=== PATIENT | male | born 1975 | race Caucasian/White ===

== ENCOUNTER 2021-06-17 10:18 | Inpatient (IN) | payer OTHER ==
[~2021-06-17] VITALS: Ht 180.3 cm; Wt 136.0 kg
[2021-06-17] MEDS ORDERED: normal saline 1000ML IV soln IV ONE (16:30)
[2021-06-17] MEDS ORDERED: piperacillin/tazo 3.375gm/50ml 50 ML IV ONE (16:30)
[2021-06-17] MEDS ORDERED: vancomycin/NS 1 GM ADD-VANTAGE 250 ML IV ONE (16:30)
[2021-06-17 17:03] LABS: BASOPHILS # (AUTO) 0.1 X10'3 (0-0.2); BASOPHILS % (AUTO) 0.9 % (0-1); EOSINOPHILS % (AUTO) 0.3 % (0-6); HEMOGLOBIN 13.5 g/dl (14.0-17.9); LYMPHOCYTES # (AUTO) 2.8 X10'3 (1.1-4.8); LYMPHOCYTES % (AUTO) 17.7 % (21-51); MEAN CORPUSCULAR HEMOGLOBIN 30.7 PG (27.0-31.0); MEAN CORPUSCULAR HGB CONC 34.5 g/dL (33.0-36.5); MEAN CORPUSCULAR VOLUME 88.9 FL (78-98); MEAN PLATELET VOLUME 7.7 FL (7.4-10.4); MONOCYTES # (AUTO) 0.8 X10'3 (0-0.9); MONOCYTES % (AUTO) 4.9 % (2-12); NEUTROPHILS # (AUTO) 12.2 X10'3 (1.8-7.7); NEUTROPHILS % (AUTO) 76.2 % (42-75); PLATELET COUNT 334 X10'3 (140-440); RED BLOOD COUNT 4.39 X10'6 (4.70-6.10); RED CELL DISTRIBUTION WIDTH 13.2 % (11.5-14.5)
[2021-06-17 17:35] LABS: ALANINE AMINOTRANSFERASE 54 U/L (12-78); ALKALINE PHOSPHATASE 95 IU/L (46-116); ANION GAP 8 (8-16); ASPARTATE AMINO TRANSFERASE 32 U/L (10-37); BILIRUBIN,TOTAL 0.4 MG/DL (0.1-1.0); BLOOD UREA NITROGEN 6 MG/DL (7-18); BUN/CREATININE RATIO 8.8 (5.4-32.0); CALCIUM 8.8 MG/DL (8.5-10.1); CHLORIDE 101 MMOL/L (99-107); CREATININE 0.68 MG/DL (0.60-1.10); GLUCOSE 101 MG/DL (70-104); SODIUM 139 MMOL/L (135-145); TOTAL CARBON DIOXIDE 29.8 MMOL/L (24-32); eGFR > 90 ML/MIN
[2021-06-17] MEDS ORDERED: HYDROcodone/acetaminophen 10/325mg tab PO ONE (19:30)
[2021-06-17] MEDS ORDERED: potassium Cl 20 mEq SR tablet PO PRN ×2 (19:35)
[2021-06-17] MEDS ORDERED: potassium CL 10mEq/100ml bag 100 ML IV PRN (19:35)
[2021-06-17] MEDS ORDERED: mag hydrox/Alum hydrox/simeth 30ml oral suspension PO PRN (19:35)
[2021-06-17] MEDS ORDERED: magnesium Cl slow-release 64mg tablet PO PRN (19:35)
[2021-06-17] MEDS ORDERED: HYDROcodone/acetaminophen 5mg/325mg tablet PO PRN (19:35)
[2021-06-17] MEDS ORDERED: magnesium 2GM in 50ml NS 50 ML IV PRN (19:35)
[2021-06-17] MEDS ORDERED: acetaminophen 325mg tablet PO PRN (19:35)
[2021-06-17] MEDS ORDERED: morphine 2 MG/ML inj. syringe IV PRN (19:35)
[2021-06-17] MEDS ORDERED: magnesium 4gm in 100ml NS 100 ML IV PRN (19:35)
[2021-06-17] MEDS ORDERED: magnesium hydroxide 30ml (MOM) UD suspension PO PRN (19:35)
[2021-06-17] MEDS: normal saline 1000ml 1,000 ML IV SCH (19:55)
[2021-06-17] MEDS ORDERED: QUET150T2 PO (20:50)
[2021-06-17] MEDS ORDERED: TRAZ-251 PO (20:50)
[2021-06-17] MEDS ORDERED: ATOR10TA87 PO (20:50)
[2021-06-17] MEDS ORDERED: PANT-47 PO (20:50)
[2021-06-17] MEDS ORDERED: METH-797 PO (20:50)
[2021-06-17] MEDS: morphine 2 MG/ML inj. syringe IV PRN (22:31)
[2021-06-17] MEDS: K and/or MAG REPLACEMENT MC SCH (23:15)
[2021-06-17] MEDS: heparin, porcine 5000 units/ml vial SQ SCH (23:16)
[2021-06-18] MEDS ORDERED: traZODone 50mg tablet PO ONE (00:25)
[2021-06-18] MEDS ORDERED: quetiapine 100mg tablet PO ONE (00:30)
[2021-06-18] MEDS ORDERED: QUEtiapine 25mg tablet PO ONE (00:30)
[2021-06-18] MEDS: doxycycline inj 100 MG in normal saline 100ml IV soln 100 ML IV SCH ×2 (00:38→09:13)
[2021-06-18] MEDS: ondansetron/PF 4mg/2ml inj IV PRN ×3 (00:38→14:34)
[2021-06-18] MEDS: HYDROcodone/acetaminophen 10/325mg tab PO PRN ×4 (03:34→20:37)
[2021-06-18] MEDS: morphine 2 MG/ML inj. syringe IV PRN ×3 (05:34→19:35)
[2021-06-18] MEDS: normal saline 1000ml 1,000 ML IV SCH ×2 (05:34→15:35)
[2021-06-18 07:55] LABS: BASOPHILS % (AUTO) 0.3 % (0-1); EOSINOPHILS # (AUTO) 0.1 X10'3 (0-0.9); EOSINOPHILS % (AUTO) 1.3 % (0-6); HEMATOCRIT 36.5 % (42.0-52.0); HEMOGLOBIN 12.5 g/dl (14.0-17.9); LYMPHOCYTES # (AUTO) 2.3 X10'3 (1.1-4.8); LYMPHOCYTES % (AUTO) 22.3 % (21-51); MEAN CORPUSCULAR HGB CONC 34.4 g/dL (33.0-36.5); MEAN CORPUSCULAR VOLUME 90.2 FL (78-98); MONOCYTES # (AUTO) 0.7 X10'3 (0-0.9); MONOCYTES % (AUTO) 7.3 % (2-12); NEUTROPHILS % (AUTO) 68.8 % (42-75); PLATELET COUNT 246 X10'3 (140-440); RED BLOOD COUNT 4.04 X10'6 (4.70-6.10); RED CELL DISTRIBUTION WIDTH 13.3 % (11.5-14.5); WHITE BLOOD COUNT 10.2 X10'3 (4.5-11.0)
[2021-06-18 07:58] LABS: ALANINE AMINOTRANSFERASE 43 U/L (12-78); ALBUMIN 3.4 G/DL (3.4-5.0); ALBUMIN/GLOBULIN RATIO 0.9 (1.1-1.5); ALKALINE PHOSPHATASE 83 IU/L (46-116); ANION GAP 5 (8-16); ASPARTATE AMINO TRANSFERASE 25 U/L (10-37); BILIRUBIN,TOTAL 0.6 MG/DL (0.1-1.0); BLOOD UREA NITROGEN 7 MG/DL (7-18); BUN/CREATININE RATIO 10.8 (5.4-32.0); CALCIUM 8.3 MG/DL (8.5-10.1); CHLORIDE 104 MMOL/L (99-107); CREATININE 0.65 MG/DL (0.60-1.10); GLUCOSE 128 MG/DL (70-104); SODIUM 141 MMOL/L (135-145); TOTAL CARBON DIOXIDE 31.7 MMOL/L (24-32); TOTAL PROTEIN 7.1 G/DL (6.4-8.2); eGFR > 90 ML/MIN
[2021-06-18] MEDS: heparin, porcine 5000 units/ml vial SQ SCH ×2 (07:59→20:38)
[2021-06-18] MEDS: K and/or MAG REPLACEMENT MC SCH ×2 (08:41→20:00)
[2021-06-18] MEDS: vancomycin/NS 1 GM ADD-VANTAGE 250 ML IV SCH ×2 (12:05→20:38)
--- NOTE | 2021-06-18 12:30 | NUR ---
pt called reports pt is a recovering drug addict update on this information switch to tylenol for pain relief
[2021-06-18] MEDS: acetaminophen 325mg tablet PO PRN (14:34)
--- NOTE | 2021-06-18 15:58 | NUR ---
patient arrived to the unit [id number] with no signs of distress. IV patent, vitals taken
[2021-06-18 17:00] VITALS: BP 148/87
--- NOTE | 2021-06-18 18:45 | NUR ---
Patient in room [facility]. I have received report from CHARLIE Mondragon and had the opportunity to ask questions and assume patient care.
[2021-06-18 20:00] VITALS: BP 133/85
[2021-06-18] MEDS: lactobacillus rhamnosus 10,000 MMU CELLS/CAPSULE PO SCH (20:37)
[2021-06-18] MEDS: traZODone 50mg tablet PO PRN (20:37)
[2021-06-18] MEDS: QUETIAPINE 150 MG TAB.SR.24H PO SCH (20:43)
[2021-06-18] MEDS ORDERED: cyclobenzaprine 10mg tablet PO PRN (21:00)
[2021-06-19] VITALS: BP 150/80
[2021-06-19] MEDS: normal saline 1000ml 1,000 ML IV SCH ×3 (01:35→18:46)
[2021-06-19] MEDS: vancomycin/NS 1 GM ADD-VANTAGE 250 ML IV SCH (03:38)
[2021-06-19] MEDS: morphine 2 MG/ML inj. syringe IV PRN ×4 (03:52→21:09)
[2021-06-19 06:10] LABS: ALANINE AMINOTRANSFERASE 40 U/L (12-78); ALBUMIN 3.3 G/DL (3.4-5.0); ALBUMIN/GLOBULIN RATIO 0.9 (1.1-1.5); ALKALINE PHOSPHATASE 77 IU/L (46-116); ANION GAP 5 (8-16); ASPARTATE AMINO TRANSFERASE 28 U/L (10-37); BILIRUBIN,TOTAL 0.5 MG/DL (0.1-1.0); BLOOD UREA NITROGEN 7 MG/DL (7-18); BUN/CREATININE RATIO 11.1 (5.4-32.0); CALCIUM 8.6 MG/DL (8.5-10.1); CHLORIDE 104 MMOL/L (99-107); CREATININE 0.63 MG/DL (0.60-1.10); GLUCOSE 129 MG/DL (70-104); POTASSIUM 4.2 MMOL/L (3.5-5.1); SODIUM 139 MMOL/L (135-145); TOTAL CARBON DIOXIDE 30.3 MMOL/L (24-32); TOTAL PROTEIN 6.8 G/DL (6.4-8.2); eGFR > 90 ML/MIN
--- NOTE | 2021-06-19 06:27 | NUR ---
Problems reprioritized. Patient report given, questions answered & plan of care reviewed with CHARLIE Dennison.
[2021-06-19 07:00] VITALS: BP 141/81
[2021-06-19] MEDS: K and/or MAG REPLACEMENT MC SCH ×2 (08:00→20:00)
[2021-06-19] MEDS: heparin, porcine 5000 units/ml vial SQ SCH ×2 (08:14→19:22)
[2021-06-19] MEDS: lactobacillus rhamnosus 10,000 MMU CELLS/CAPSULE PO SCH ×2 (08:15→19:21)
[2021-06-19] MEDS: atorvastatin 10mg tablet PO SCH (08:15)
[2021-06-19] MEDS: pantoprazole 40mg Tablet.DR PO SCH (08:15)
[2021-06-19] MEDS: ondansetron/PF 4mg/2ml inj IV PRN ×3 (08:15→23:37)
[2021-06-19 08:51] LABS: BASOPHILS # (AUTO) 0.1 X10'3 (0-0.2); BASOPHILS % (AUTO) 0.8 % (0-1); EOSINOPHILS # (AUTO) 0.1 X10'3 (0-0.9); HEMATOCRIT 36.1 % (42.0-52.0); HEMOGLOBIN 12.4 g/dl (14.0-17.9); LYMPHOCYTES # (AUTO) 2.2 X10'3 (1.1-4.8); LYMPHOCYTES % (AUTO) 29.3 % (21-51); MEAN CORPUSCULAR HEMOGLOBIN 31.1 PG (27.0-31.0); MEAN CORPUSCULAR HGB CONC 34.4 g/dL (33.0-36.5); MEAN CORPUSCULAR VOLUME 90.3 FL (78-98); MEAN PLATELET VOLUME 7.7 FL (7.4-10.4); MONOCYTES # (AUTO) 0.5 X10'3 (0-0.9); MONOCYTES % (AUTO) 7.2 % (2-12); NEUTROPHILS # (AUTO) 4.6 X10'3 (1.8-7.7); NEUTROPHILS % (AUTO) 60.7 % (42-75); PLATELET COUNT 248 X10'3 (140-440); RED BLOOD COUNT 3.99 X10'6 (4.70-6.10); RED CELL DISTRIBUTION WIDTH 13.4 % (11.5-14.5); WHITE BLOOD COUNT 7.5 X10'3 (4.5-11.0)
[2021-06-19 11:00] VITALS: BP 135/85
[2021-06-19] MEDS ORDERED: VANCOMYCIN LEVEL IV ONE (11:30)
[2021-06-19] MEDS: HYDROcodone/acetaminophen 10/325mg tab PO PRN ×3 (11:56→23:38)
--- NOTE | 2021-06-19 18:51 | NUR ---
Patient in room [facility] 346. I have received report from Jesi GUERRA and had the opportunity to ask questions and assume patient care.
[2021-06-19 19:00] VITALS: BP 136/81
[2021-06-19] MEDS: QUETIAPINE 150 MG TAB.SR.24H PO SCH (21:08)
[2021-06-19] MEDS: temazepam 15mg capsule PO PRN (21:08)
[2021-06-19] MEDS: traZODone 50mg tablet PO PRN (23:37)
[2021-06-20] VITALS: BP 143/70
[2021-06-20 05:46] LABS: BASOPHILS % (AUTO) 0.7 % (0-1); EOSINOPHILS # (AUTO) 0.1 X10'3 (0-0.9); EOSINOPHILS % (AUTO) 1.9 % (0-6); HEMATOCRIT 35.8 % (42.0-52.0); HEMOGLOBIN 12.2 g/dl (14.0-17.9); LYMPHOCYTES # (AUTO) 2.3 X10'3 (1.1-4.8); LYMPHOCYTES % (AUTO) 31.7 % (21-51); MEAN CORPUSCULAR HEMOGLOBIN 30.9 PG (27.0-31.0); MEAN PLATELET VOLUME 7.8 FL (7.4-10.4); MONOCYTES # (AUTO) 0.5 X10'3 (0-0.9); MONOCYTES % (AUTO) 7.3 % (2-12); NEUTROPHILS # (AUTO) 4.3 X10'3 (1.8-7.7); NEUTROPHILS % (AUTO) 58.4 % (42-75); PLATELET COUNT 266 X10'3 (140-440); RED BLOOD COUNT 3.93 X10'6 (4.70-6.10); RED CELL DISTRIBUTION WIDTH 13.1 % (11.5-14.5); WHITE BLOOD COUNT 7.3 X10'3 (4.5-11.0)
[2021-06-20 06:04] LABS: ALANINE AMINOTRANSFERASE 40 U/L (12-78); ALBUMIN 3.2 G/DL (3.4-5.0); ALBUMIN/GLOBULIN RATIO 0.9 (1.1-1.5); ALKALINE PHOSPHATASE 73 IU/L (46-116); ANION GAP 3 (8-16); ASPARTATE AMINO TRANSFERASE 22 U/L (10-37); BILIRUBIN,TOTAL 0.4 MG/DL (0.1-1.0); BLOOD UREA NITROGEN 9 MG/DL (7-18); BUN/CREATININE RATIO 11.7 (5.4-32.0); CHLORIDE 102 MMOL/L (99-107); CREATININE 0.77 MG/DL (0.60-1.10); GLUCOSE 116 MG/DL (70-104); SODIUM 139 MMOL/L (135-145); TOTAL CARBON DIOXIDE 34.4 MMOL/L (24-32); TOTAL PROTEIN 6.7 G/DL (6.4-8.2); eGFR > 90 ML/MIN
--- NOTE | 2021-06-20 06:32 | NUR ---
Problems reprioritized. Patient report given, questions answered & plan of care reviewed with Jesi GUERRA.
[2021-06-20] MEDS: heparin, porcine 5000 units/ml vial SQ SCH ×2 (07:39→19:23)
[2021-06-20] MEDS: HYDROcodone/acetaminophen 10/325mg tab PO PRN ×4 (07:39→23:03)
[2021-06-20] MEDS: pantoprazole 40mg Tablet.DR PO SCH (07:39)
[2021-06-20] MEDS: atorvastatin 10mg tablet PO SCH (07:39)
[2021-06-20] MEDS: lactobacillus rhamnosus 10,000 MMU CELLS/CAPSULE PO SCH ×2 (07:39→19:23)
[2021-06-20 08:00] VITALS: BP 119/74
[2021-06-20] MEDS: K and/or MAG REPLACEMENT MC SCH ×2 (08:00→19:11)
[2021-06-20 11:00] VITALS: BP 118/79
[2021-06-20] MEDS ORDERED: VANCOMYCIN LEVEL IV ONE (11:30)
[2021-06-20] MEDS: ondansetron/PF 4mg/2ml inj IV PRN (13:34)
[2021-06-20] MEDS: normal saline 1000ml 1,000 ML IV SCH (13:35)
--- NOTE | 2021-06-20 15:02 | NUR ---
message to dr samson'"PAGER ID: [phone] MESSAGE: ok to run NS @[facility]? [id number]"
--- NOTE | 2021-06-20 15:06 | NUR ---
dr samson returned page to [facility] at [facility]
[2021-06-20] MEDS ORDERED: normal saline 1000ml 1,000 ML IV SCH (15:10)
--- NOTE | 2021-06-20 18:51 | NUR ---
Patient in room [facility] 346. I have received report from Jesi GUERRA and had the opportunity to ask questions and assume patient care.
[2021-06-20 20:00] VITALS: BP 152/84
[2021-06-20] MEDS: traZODone 50mg tablet PO PRN (21:54)
[2021-06-20] MEDS: QUETIAPINE 150 MG TAB.SR.24H PO SCH (21:54)
[2021-06-20] MEDS: temazepam 15mg capsule PO PRN ×2 (21:54→23:03)
[2021-06-21] VITALS: BP 130/74
[2021-06-21] MEDS: morphine 2 MG/ML inj. syringe IV PRN ×2 (02:34→23:06)
[2021-06-21] MEDS: HYDROcodone/acetaminophen 10/325mg tab PO PRN ×3 (05:01→13:57)
[2021-06-21 06:04] LABS: BASOPHILS # (AUTO) 0.1 X10'3 (0-0.2); BASOPHILS % (AUTO) 0.7 % (0-1); EOSINOPHILS # (AUTO) 0.1 X10'3 (0-0.9); EOSINOPHILS % (AUTO) 1.9 % (0-6); HEMATOCRIT 37.6 % (42.0-52.0); HEMOGLOBIN 12.9 g/dl (14.0-17.9); LYMPHOCYTES # (AUTO) 2.3 X10'3 (1.1-4.8); LYMPHOCYTES % (AUTO) 30.5 % (21-51); MEAN CORPUSCULAR HGB CONC 34.4 g/dL (33.0-36.5); MEAN CORPUSCULAR VOLUME 89.9 FL (78-98); MEAN PLATELET VOLUME 7.5 FL (7.4-10.4); MONOCYTES # (AUTO) 0.5 X10'3 (0-0.9); NEUTROPHILS # (AUTO) 4.7 X10'3 (1.8-7.7); NEUTROPHILS % (AUTO) 60.9 % (42-75); PLATELET COUNT 275 X10'3 (140-440); RED BLOOD COUNT 4.18 X10'6 (4.70-6.10); RED CELL DISTRIBUTION WIDTH 13.3 % (11.5-14.5); WHITE BLOOD COUNT 7.6 X10'3 (4.5-11.0)
--- NOTE | 2021-06-21 06:30 | NUR ---
Problems reprioritized. Patient report given, questions answered & plan of care reviewed with Jesi GUERRA.
[2021-06-21 06:47] LABS: ALANINE AMINOTRANSFERASE 39 U/L (12-78); ALBUMIN 3.4 G/DL (3.4-5.0); ALKALINE PHOSPHATASE 76 IU/L (46-116); ANION GAP 5 (8-16); ASPARTATE AMINO TRANSFERASE 27 U/L (10-37); BILIRUBIN,TOTAL 0.4 MG/DL (0.1-1.0); BLOOD UREA NITROGEN 10 MG/DL (7-18); BUN/CREATININE RATIO 15.4 (5.4-32.0); CALCIUM 8.8 MG/DL (8.5-10.1); CHLORIDE 102 MMOL/L (99-107); CREATININE 0.65 MG/DL (0.60-1.10); GLUCOSE 116 MG/DL (70-104); POTASSIUM 4.1 MMOL/L (3.5-5.1); SODIUM 140 MMOL/L (135-145); TOTAL CARBON DIOXIDE 32.8 MMOL/L (24-32); TOTAL PROTEIN 6.8 G/DL (6.4-8.2); eGFR > 90 ML/MIN
[2021-06-21] MEDS: K and/or MAG REPLACEMENT MC SCH ×3 (07:48→20:00)
[2021-06-21 08:00] VITALS: BP 127/85
[2021-06-21] MEDS ORDERED: ketorolac trometh. 30mg/ml inj. IV ONE (08:25)
[2021-06-21] MEDS: heparin, porcine 5000 units/ml vial SQ SCH ×2 (08:51→20:10)
[2021-06-21] MEDS: lactobacillus rhamnosus 10,000 MMU CELLS/CAPSULE PO SCH ×2 (08:51→20:08)
[2021-06-21] MEDS: ondansetron/PF 4mg/2ml inj IV PRN (08:51)
[2021-06-21] MEDS: pantoprazole 40mg Tablet.DR PO SCH (08:51)
[2021-06-21] MEDS: atorvastatin 10mg tablet PO SCH (08:51)
--- NOTE | 2021-06-21 09:57 | NUR ---
Initial: Pt admitted w/ R hand cellulitis and leukocytosis per EMR. Currently on Regular diet w/ 100% intake of meals meeting needs. LBM 06/20. No nutritional intervention implemented at this time, will continue to monitor. Recs: 1. Continue Regular diet as tolerated 2. Bowel care per rx 3. Weekly wts Addendum: 06/21/21 at [address] Amended: Links added.
[2021-06-21 13:24] VITALS: BP 120/77
[2021-06-21] MEDS: CLINDAMYCIN 300mg/NS 50ml IVPB 50 ML IV SCH ×2 (13:57→20:07)
[2021-06-21] MEDS ORDERED: GADOTERATE MEGLUMINE 7.5 MMOL/15 ML VIAL IV ONE (17:27)
[2021-06-21 20:00] VITALS: BP 152/83
[2021-06-21] MEDS: acetaminophen 325mg tablet PO PRN (20:08)
[2021-06-21] MEDS: traZODone 50mg tablet PO PRN ×2 (20:17→23:05)
[2021-06-21] MEDS: QUETIAPINE 150 MG TAB.SR.24H PO SCH (20:17)
[2021-06-22] VITALS: BP 124/63
[2021-06-22] MEDS: CLINDAMYCIN 300mg/NS 50ml IVPB 50 ML IV SCH ×2 (01:32→08:23)
[2021-06-22 06:21] LABS: BASOPHILS # (AUTO) 0.1 X10'3 (0-0.2); BASOPHILS % (AUTO) 0.8 % (0-1); EOSINOPHILS # (AUTO) 0.2 X10'3 (0-0.9); EOSINOPHILS % (AUTO) 2.4 % (0-6); HEMATOCRIT 39.6 % (42.0-52.0); HEMOGLOBIN 13.4 g/dl (14.0-17.9); LYMPHOCYTES # (AUTO) 2.9 X10'3 (1.1-4.8); LYMPHOCYTES % (AUTO) 38.6 % (21-51); MEAN CORPUSCULAR HEMOGLOBIN 30.8 PG (27.0-31.0); MEAN CORPUSCULAR HGB CONC 33.8 g/dL (33.0-36.5); MEAN CORPUSCULAR VOLUME 91.2 FL (78-98); MEAN PLATELET VOLUME 7.6 FL (7.4-10.4); MONOCYTES # (AUTO) 0.7 X10'3 (0-0.9); MONOCYTES % (AUTO) 9.2 % (2-12); NEUTROPHILS # (AUTO) 3.6 X10'3 (1.8-7.7); PLATELET COUNT 277 X10'3 (140-440); RED BLOOD COUNT 4.34 X10'6 (4.70-6.10); RED CELL DISTRIBUTION WIDTH 13.3 % (11.5-14.5); WHITE BLOOD COUNT 7.4 X10'3 (4.5-11.0)
--- NOTE | 2021-06-22 06:30 | NUR ---
Patient in room [facility] 346. I have received report from Lorna and had the opportunity to ask questions and assume patient care.
[2021-06-22 06:47] LABS: ALANINE AMINOTRANSFERASE 40 U/L (12-78); ALBUMIN 3.3 G/DL (3.4-5.0); ALKALINE PHOSPHATASE 72 IU/L (46-116); ANION GAP 9 (8-16); ASPARTATE AMINO TRANSFERASE 31 U/L (10-37); BILIRUBIN,TOTAL 0.3 MG/DL (0.1-1.0); BLOOD UREA NITROGEN 11 MG/DL (7-18); CALCIUM 8.2 MG/DL (8.5-10.1); CHLORIDE 105 MMOL/L (99-107); CREATININE 0.58 MG/DL (0.60-1.10); GLUCOSE 80 MG/DL (70-104); POTASSIUM 4.1 MMOL/L (3.5-5.1); SODIUM 142 MMOL/L (135-145); TOTAL CARBON DIOXIDE 28.4 MMOL/L (24-32); TOTAL PROTEIN 6.6 G/DL (6.4-8.2); eGFR > 90 ML/MIN
[2021-06-22 07:00] VITALS: BP_SYST 143; BP_SYST 144; BP_DIAS 80; BP_DIAS 90
[2021-06-22] MEDS: K and/or MAG REPLACEMENT MC SCH (08:00)
[2021-06-22] MEDS: lactobacillus rhamnosus 10,000 MMU CELLS/CAPSULE PO SCH (08:24)
[2021-06-22] MEDS: pantoprazole 40mg Tablet.DR PO SCH (08:24)
[2021-06-22] MEDS: atorvastatin 10mg tablet PO SCH (08:24)
[2021-06-22] MEDS: heparin, porcine 5000 units/ml vial SQ SCH (08:25)
[2021-06-22] MEDS: HYDROcodone/acetaminophen 10/325mg tab PO PRN ×2 (08:27→10:14)
[2021-06-22] MEDS ORDERED: IBUP-1986 PO (10:24)
[2021-06-22] MEDS ORDERED: CLIN-97 PO (10:24)
[2021-06-22 11:00] VITALS: BP 136/90
--- NOTE | 2021-06-22 13:06 | NUR ---
Pt discharged, with Student RN, abmulated independently with all belongings Addendum: 06/22/21 at 1309 by Taj Alejandre RN IV DC'd and intact, new prescriptions called to [facility] in [place]. Pt stated understanding and willingness to comply with all DC orders
== END 2021-06-22 12:27 | disposition home or self-care (01) | DRG 603 ==
LOC: ER 10:19 → ED HOLD 19:36 → SUR 3N 06-18 15:35
PROVIDERS: ADMIT Internal Medicine; ATTEND Family Medicine
DX: L03.113 Cellulitis of right upper limb (principal); E78.5 Hyperlipidemia, unspecified; F12.90 Cannabis use, unspecified, uncomplicated; M06.9 Rheumatoid arthritis, unspecified; Z20.822 Contact with and (suspected) exposure to COVID-19; F32.A Depression, unspecified; I10 Essential (primary) hypertension; M10.9 Gout, unspecified; M19.90 Unspecified osteoarthritis, unspecified site; Z56.0 Unemployment, unspecified; Z79.899 Other long term (current) drug therapy
CPT/HCPCS: 36415; 73130; 73200; 73220; 80053; 80202; 83036; 83605; 84145; 84550; 85025; 85651; 87040; 87635; 99285; A9575; G0378; J1644; J1885; J2270; J2405; J2543; J3370; J3490; J7030